=== PATIENT | male | born 1945 | race Caucasian/White ===

== ENCOUNTER → 2017-12-28 | Outpatient (CLI) | payer MEDICARE, OTHER ==
[~2017-12-28] MED LIST: ADDERALL 10 MG10 MG PO; ADDERALL 20 MG20 M1 PO; BACTRIM DS TAB1 EACH; CARAFATE 1 GM TA1 G1 PO; CENTRUM SILVER1 EAC4 PO; CYMBALTA30 MG PO; CYMBALTA60 MG PO; ENDOCET 10-3251 EACH PO; FINASTERIDE5 MG PO; IRON325 PO; KEFLEX500 MG PO; LEVOXYL150 MCG PO; LIPITOR40 MG PO; LISINOPRIL40 MG PO; MOBIC15 MG PO; MS CONTIN15 MG PO; NABUMETONE 500500 M1 PO; NEURONTIN 300300 M1 PO; NORCO 5-325 TA1 EAC1 PO; NORCO 5-325 TA1 EACH PO; OMEPRAZOLE 20 M20 MG PO; OXYCODONE-ACET1 EAC2; PERCOCET 5-3251 EACH PO; SENNA; VICODIN
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
== END ==
LOC: M.PC 01:31
DX: G89.4 Chronic pain syndrome (principal); M19.042 Primary osteoarthritis, left hand; M19.041 Primary osteoarthritis, right hand; M16.0 Bilateral primary osteoarthritis of hip; M19.012 Primary osteoarthritis, left shoulder; M19.011 Primary osteoarthritis, right shoulder; F90.8 Attention-deficit hyperactivity disorder, other type; Z79.899 Other long term (current) drug therapy

== ENCOUNTER → 2018-03-01 | Outpatient (CLI) | payer MEDICARE, OTHER ==
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
== END ==
LOC: M.PC 02-22 02:40
DX: M19.012 Primary osteoarthritis, left shoulder (principal); M19.011 Primary osteoarthritis, right shoulder; M17.0 Bilateral primary osteoarthritis of knee

== ENCOUNTER → 2018-05-03 | Outpatient (CLI) | payer MEDICARE, OTHER ==
--- NOTE | 2018-05-04 07:56 | PAINCON ---
[facility] [address] [place] [address] PAIN MANAGEMENT CONSULTATION Name: MITCH SAUNDERS [facility] [id number] Admission: 05/03/18 Attend Phys: Swathi Casey Discharge: Date of : 47 Report #: [id number] THIS REPORT FOR: //name// CC: Lalit Mcqueen DATE OF SERVICE: 05/03/2018 The patient is a 72-year-old gentleman being treated for chronic pain syndrome, osteoarthritis affecting shoulders and knees requiring complex medication management. Last seen in pain clinic 03/01/2018. Continued on a very low dose opiate analgesic, hydrocodone 5/325 b.i.d. He has done well with current medication. Does use Cymbalta, had been at 90. His psychiatrist increased to 120 daily that seems to be helpful. Using nabumetone 5 mg b.i.d. Returns to pain clinic today, rating pain at 5 on a VAS. Pain is in the low back, right knee, left shoulder. He tells me that he is scheduled for right knee surgery 05/15/2018. Does still have significant limited range of motion of the left shoulder, primarily the abduction actively though passively, he has fairly good range of motion generally full (s/p left rotator cuff surgery last summer with increased pain and decreased ROM, active, after a subsequent fall). PHYSICAL EXAMINATION: Otherwise shows 5-foot 10-inch, 178-pound gentleman, BMI is 25.7 kilograms per meter squared. Blood pressure is 151/91, repeat at 132/82; pulse 85, respirations 16. Alert and oriented to person, place and time, judged to be a reasonable historian. Rises from the chair using armrest, nominally antalgic gait, pain in the right knee. We reviewed the fact that opiate medications are being used to provide analgesia adequate to support activities of daily living, not attempting to achieve a specific pain score on the 0-10 Visual Analog Scale. The current opiate medications are providing sufficient analgesia to allow the patient to participate in activities of daily living. The patient is not exhibiting any aberrant behavior suggestive of drug diversion. The patient is not having any adverse reactions to medications. The patient is not suffering from daytime somnolence or mental acuity changes. The patient is managing opiate-induced constipation with appropriate tdho-nxg-yiawevx agents and dietary considerations. The patient was counseled on concern for caution with operating a motor vehicle while using opiate medications. A physical exam was performed and the patient's functional status was evaluated. All patients with back pain were advised against the bed rest greater than 4 days and were advised to return to normal activities. Pain score assessment was noted and the treatment plan was reviewed with the patient. All current medications, both prescribed and OTC were reviewed and reconciled on the electronic medical record. Tobacco screening was accomplished [place] [address] PAIN MANAGEMENT CONSULTATION Name: MITCH SAUNDERS [facility] [id number] Admission: 05/03/18 Attend Phys: Swathi Casey Discharge: Date of : 47 Report #: [id number] cessation was advised when indicated. BMI was noted and diet/exercise modification was recommended for all patients following outside normal parameters. I reviewed with the patient today their responsibilities to safeguard prescription medications, reviewed their responsibility to utilize medications only as prescribed by the physician. They are to seek and receive pain medications only from 1 physician group ( [facility]). They are to use 1 pharmacy and keep the clinic informed if they change pharmacies. Their responsibilities include making followup visits in a timely fashion and to avoid abrupt discontinuation of medication usage. Their responsibilities further include bringing their medications (bottles from the pharmacy with residual pills) to the visit for possible confirmation of pill counts and the patient understands it is their responsibility to submit to random drug screens to ensure both that the medications prescribed are present, and that no other controlled substances are present. All prescriptions provided today were generated electronically. ASSESSMENT: Osteoarthritis affecting knees, left shoulder rotator cuff tear requiring complex medication management. RECOMMENDATION: Continue hydrocodone 5/325 b.i.d. Recommend he follow up with Dr. Mcfarlane regarding possibly continuing his current medication. He has been very stable on the super low dose of narcotic. 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 Otherwise, he can follow up with the pain clinic, though it does seem somewhat superfluous to have to pay copays to both the hospital and the pain physician for this fairly low dose stable analgesic agent. Discharged in good and stable condition with 2 months of current medication. Follow up only if needed. <ELECTRONICALLY SIGNED> By: Joey Mcqueen DO 05/04/18 0756 1321 [id number] Mcqueen DO /nt
== END ==
LOC: M.PC 04-26 09:50
DX: M75.102 Unspecified rotator cuff tear or rupture of left shoulder, not specified as traumatic (principal); M17.0 Bilateral primary osteoarthritis of knee; Z79.899 Other long term (current) drug therapy

== ENCOUNTER 2018-06-10 21:42 | Emergency (ER) | payer MEDICARE, OTHER ==
[~2018-06-10] VITALS: Ht 172.7 cm; Wt 72.6 kg
[2018-06-10 22:23] LABS: ABSOLUTE EOSINOPHILS 0.1 thou/uL (0.0-0.7); ABSOLUTE LYMPHOCYTES 1.6 thou/uL (0.8-5.3); ABSOLUTE MONOCYTES 0.8 thou/uL (0.0-1.2); ABSOLUTE NEUTROPHILS 4.4 thou/uL (1.6-8.1); BASOPHILS 0.4 %; EOSINOPHILS 1.3 %; HEMATOCRIT 39.4 % (42.0-52.0); HEMOGLOBIN 12.7 gm/dL (14.0-18.0); LYMPHOCYTES 23.1 %; MCHC 32.3 g/dL (28.0-37.0); MONOCYTES 11.3 %; MPV 7.8 fl. (7.2-11.1); NUCLEATED RBCS 0 /100WBC; PLATELET COUNT* 274 thou/uL (150-400); POLYS 63.9 %; RBC 4.23 mil/uL (4.50-6.00); RDW-CV 15.3 % (10.5-14.5); WBC 6.8 thou/uL (4.0-11.0)
[2018-06-10 22:34] LABS: INR 1.1; PROTIME 10.5 Seconds (9.20-11.50)
[2018-06-10 23:29] VITALS: BP 115/58
== END 2018-06-10 23:30 | disposition home or self-care (01) ==
LOC: M.ERS 21:42
PROVIDERS: Nurse Practitioner Family
DX: S80.11XA Contusion of right lower leg, initial encounter (principal); I10 Essential (primary) hypertension; K21.9 Gastro-esophageal reflux disease without esophagitis; E89.0 Postprocedural hypothyroidism; Z96.653 Presence of artificial knee joint, bilateral; Z85.850 Personal history of malignant neoplasm of thyroid; W18.39XA Other fall on same level, initial encounter; Y93.89 Activity, other specified; Y92.89 Other specified places as the place of occurrence of the external cause; Y99.8 Other external cause status

== ENCOUNTER 2018-10-26 15:00 | Inpatient (IN) | payer MEDICARE, OTHER ==
[~2018-10-26] VITALS: Ht 177.8 cm; Wt 75.7 kg
[2018-10-26 15:06] VITALS: BP 152/99
[2018-10-26] MEDS ORDERED: CYMBALTA60 MG PO (15:12)
[2018-10-26 15:42] LABS: ABSOLUTE EOSINOPHILS 0.1 thou/uL (0.0-0.7); ABSOLUTE LYMPHOCYTES 1.5 thou/uL (0.8-5.3); ABSOLUTE MONOCYTES 0.9 thou/uL (0.0-1.2); ABSOLUTE NEUTROPHILS 9.6 thou/uL (1.6-8.1); BASOPHILS 0.4 %; EOSINOPHILS 0.9 %; HEMATOCRIT 38.3 % (42.0-52.0); HEMOGLOBIN 12.5 gm/dL (14.0-18.0); LYMPHOCYTES 12.4 %; MCH 30.4 pg (26.0-34.0); MCHC 32.6 g/dL (28.0-37.0); MCV 93.1 fL (80.0-100.0); MONOCYTES 7.6 %; NUCLEATED RBCS 0 /100WBC; PLATELET COUNT* 306 thou/uL (150-400); POLYS 78.7 %; RBC 4.12 mil/uL (4.50-6.00); WBC 12.2 thou/uL (4.0-11.0)
[2018-10-26 16:09] LABS: CREATININE 1.1 mg/dL (0.6-1.3); POTASSIUM 4.4 mmol/L (3.5-5.1)
[2018-10-26 16:13] LABS: ALBUMIN 3.2 g/dL (3.4-5.0); TOTAL BILIRUBIN 0.3 mg/dL (<0.1-1.0); TOTAL PROTEIN 6.8 g/dL (6.4-8.2)
[2018-10-26 16:58] LABS: ESR (SEDRATE) 18 mm/hr (0-20)
[2018-10-26 17:34] VITALS: BP 152/99
--- NOTE | 2018-10-26 19:53 | NUR ---
PATIENT ARRIVED TO UNIT AT 1745. ALERT AND ORIENTED X4. UP WITH STAND BY ASSIST IN ROOM. IV IS PATENT AND INFUSING. PAIN BEING MANAGED WITH PO AND IV PAIN MEDICATION. NAUSEA BEING MANAGED WITH IV NAUSEA MEDICATION. VSS ON ROOM AIR. PATIENT HAS BEEN ORIENTED TO ROOM. CALL LIGHT IS WITHIN REACH. NURSING WILL CONTINUE TO MONITOR.
[2018-10-26 20:00] VITALS: BP 148/87
--- NOTE | 2018-10-26 23:21 | NUR ---
Acewrap dressing to right elbow removed and photo taken. When photo was printed I observed that I placed L implementation project manager the arm in the photo. I did write RT on the photo with permanent marker since it is his right elbow that abrasion is and it does have redness around the scabbed area and some swelling. Area cleansed with wound cleansing solution, no drainage observed, Optifoam dressing applied and ABD, then acewrap dressing applied. Rt arm is elevated on pillow and dressing is dry and intact.
[2018-10-27 04:25] LABS: ABSOLUTE EOSINOPHILS 0.1 thou/uL (0.0-0.7); ABSOLUTE LYMPHOCYTES 1.7 thou/uL (0.8-5.3); ABSOLUTE NEUTROPHILS 8.9 thou/uL (1.6-8.1); BASOPHILS 0.4 %; EOSINOPHILS 1.1 %; HEMATOCRIT 37.8 % (42.0-52.0); HEMOGLOBIN 12.2 gm/dL (14.0-18.0); LYMPHOCYTES 14.3 %; MCH 30.2 pg (26.0-34.0); MCHC 32.4 g/dL (28.0-37.0); MCV 93.2 fL (80.0-100.0); MONOCYTES 8.8 %; MPV 8.3 fl. (7.2-11.1); NUCLEATED RBCS 0 /100WBC; PLATELET COUNT* 259 thou/uL (150-400); POLYS 75.4 %; RBC 4.05 mil/uL (4.50-6.00); RDW-CV 14.4 % (10.5-14.5); WBC 11.8 thou/uL (4.0-11.0)
[2018-10-27 04:31] LABS: CALCIUM 8.5 mg/dL (8.5-10.1); CREATININE 0.9 mg/dL (0.6-1.3); POTASSIUM 4.1 mmol/L (3.5-5.1)
--- NOTE | 2018-10-27 05:45 | NUR ---
Alert and oriented x 4. He has been in bed all of this shift. He is voiding per urinal. Vitals are stable. Rt arm acewrap dressing dry and intact and arm placed on pillow. He has had pain meds x 2 this shift. He's had nothing by mouth since midnight. He is sleeping well since last pain med given.
[2018-10-27 07:40] VITALS: BP 149/77
[2018-10-27 10:19] VITALS: BP 149/77
[2018-10-27] MEDS ORDERED: MINOCIN50 MG PO (10:41)
--- NOTE | 2018-10-27 10:49 | CON ---
[facility] [address] [place] [address] CONSULTATION Name: MITCH SAUNDERS Room: [address] IN .R.#: [id number] Admission: 10/26/18 Attend Phys: Lul Rey MD Discharge: Date of : 47 Report #: [id number] THIS REPORT FOR: //name// CC: Mei Rey DATE OF SERVICE: 10/27/2018 INFECTIOUS DISEASE CONSULTATION ATTENDING PHYSICIAN: Dr. Rey. REASON FOR EVALUATION: Right septic olecranon bursitis. HISTORY OF PRESENT ILLNESS: Chart reviewed, patient examined. This is a 73-year-old gentleman, with history of thyroid cancer in the distant past, who fell, struck his elbow roughly 3 days prior to his admission, felt it was getting worse including the pain, decreased range of motion, not clear that he had systemic illness. Evaluation raised question of possible septic olecranon bursitis. Plain film showed soft tissue swelling over the olecranon. No fracture or foreign body noted. Normal lactic acid. CRP was elevated at 62.4, sed rate 18, borderline elevated white count. He was started empirically on vancomycin. MRI is pending. Has been evaluated by Surgery who is taking a watchful waiting approach. At this point, he states he feels better with increased range of motion. Denies any significant pulmonary or gastrointestinal related complaints. Appetite has been fair. His weight has been stable. He is not encephalopathic. ALLERGIES: None known. MEDICATIONS: Include duloxetine, levothyroxine, vancomycin, p.r.n. analgesics and antiemetics. PAST MEDICAL HISTORY: In addition of thyroid cancers, previous thyroidectomy, is resolved, hypertension, chronic pain syndrome, reflux, esophageal dilatation on 2 occasions. PAST SURGICAL HISTORY: Bilateral knee and shoulder replacements. SOCIAL HISTORY: Nonsmoker, no ethanol, no illicit drug use. FAMILY HISTORY: Noncontributory. REVIEW OF SYSTEMS: Ten-point review of systems otherwise unremarkable [place] [address] CONSULTATION Name: MITCH SAUNDERS Room: [address] IN [facility].#: [id number] Admission: 10/26/18 Attend Phys: Lul Rey MD Discharge: Date of : 47 Report #: [id number] PHYSICAL EXAMINATION: GENERAL: Pleasant, alert, cooperative, in moderate distress, appears fairly well nourished. VITAL SIGNS: Temperature 98.9, pulse 100, respirations 20, blood pressure 148/87. SKIN: Warm, dry, no rashes. HEENT: Extraocular muscles intact. Oropharynx without lesion. NECK: Supple. LUNGS: Clear to auscultation. HEART: Regular rate and rhythm without murmur. ABDOMEN: Soft, nontender, nondistended. There are no peritoneal signs. EXTREMITIES: Right upper extremity has compression dressing. This was removed, exposed the olecranon, has a small area of eschar there. The overall degree of inflammation was only, I think mild to moderate. He did have somewhat decreased range of motion. I do not appreciate a significant excess fluid in the joint or in the olecranon. GENITOURINARY: Deferred. RECTAL: Deferred. LABORATORY DATA: Blood cultures sterile thus far. CBC: White count of 11.8, H and H 12.2 and 37.8 and platelets of 259. TSH of 0.547. Electrolytes: Sodium 139, potassium 4.1, chloride 104, bicarbonate is 27, BUN and creatinine 17 and 0.9, estimated GFR of 83, glucose of 105. Sed rate of 18. CRP of 62.4. Uric acid of 5.1. LFTs unremarkable. Albumin of 3.2, total protein 6.8. Plain film of the elbow showed soft tissue swelling over the olecranon. No fracture or foreign body or dislocation. ASSESSMENT: Right elbow inflammatory process. We will continue empiric antimicrobial therapy, the vancomycin is reasonable. He has clinically improved with that just due to the compression and gets in sense there is a significant infectious component to this. We will await MRI results. I think we can transition to oral antibiotics fairly short time. <ELECTRONICALLY SIGNED> By: Tim Soria MD 10/27/18 1049 0917 [id number] Soria MD /nt
[2018-10-27 11:49] VITALS: BP 145/88
[2018-10-27] MEDS ORDERED: NORCO 5-325 TA1 EACH PO (12:29)
[2018-10-27 12:42] VITALS: BP 149/77
[2018-10-27 13:27] VITALS: BP 149/77
--- NOTE | 2018-10-27 13:27 | NUR ---
PT GIVEN DISCHARGE INFORMATION AT THIS TIME, CARE NOTES AND PRESCRIPTIONS GIVEN. IV REMOVED. PT DENIED ANY FURTHER QUESTIONS OR CONCERNS AT THIS TIME. FALL RISK PRECAUTIONS IN PLACE. HOURLY ROUNDING COMPLETED. PT LEFT WITH SIGNIFICANT OTHER TO HOME CARE.
== END 2018-10-27 14:00 | disposition home or self-care (01) | DRG 872 ==
LOC: M.ERS 15:00 → M.ORTHSURG 16:52 → M.TBA-ER 16:52 → M.ORTHSURG 17:38
PROVIDERS: Nurse Practitioner Family; ADMIT Family Medicine
DX: A41.9 Sepsis, unspecified organism (principal); M71.121 Other infective bursitis, right elbow; E89.0 Postprocedural hypothyroidism; G89.29 Other chronic pain; M79.18 Myalgia, other site; K21.9 Gastro-esophageal reflux disease without esophagitis; Z96.653 Presence of artificial knee joint, bilateral; Z96.612 Presence of left artificial shoulder joint; Z96.611 Presence of right artificial shoulder joint; I12.9 Hypertensive chronic kidney disease with stage 1 through stage 4 chronic kidney disease, or unspecified chronic kidney disease; M54.9 Dorsalgia, unspecified; N18.3 Chronic kidney disease, stage 3 (moderate); Z85.850 Personal history of malignant neoplasm of thyroid; Z80.8 Family history of malignant neoplasm of other organs or systems

== ENCOUNTER 2019-10-09 12:30 | Emergency (ER) | payer OTHER ==
[~2019-10-09] VITALS: Ht 177.8 cm; Wt 72.6 kg
[~2019-10-09 12:30] MED LIST changes: +MINOCIN50 MG PO
[2019-10-09] MEDS ORDERED: ACETAMINOPHEN650 M5 PO (12:51)
[2019-10-09 13:20] LABS: ABSOLUTE EOSINOPHILS 0.1 thou/uL (0.0-0.7); ABSOLUTE LYMPHOCYTES 1.8 thou/uL (0.8-5.3); ABSOLUTE MONOCYTES 0.5 thou/uL (0.0-1.2); ABSOLUTE NEUTROPHILS 3.4 thou/uL (1.6-8.1); BASOPHILS 0.7 %; EOSINOPHILS 2.2 %; HEMATOCRIT 32.5 % (42.0-52.0); LYMPHOCYTES 31.3 %; MCH 30.6 pg (26.0-34.0); MCHC 33.9 g/dL (28.0-37.0); MCV 90.4 fL (80.0-100.0); MONOCYTES 7.9 %; MPV 7.6 fl. (7.2-11.1); NUCLEATED RBCS 0 /100WBC; PLATELET COUNT* 283 thou/uL (150-400); POLYS 57.9 %; WBC 5.9 thou/uL (4.0-11.0)
[2019-10-09 13:28] LABS: POTASSIUM 4.3 mmol/L (3.5-5.1)
[2019-10-09 13:33] LABS: ALBUMIN 3.3 g/dL (3.4-5.0); TOTAL BILIRUBIN 0.6 mg/dL (<0.1-1.0); TOTAL PROTEIN 6.4 g/dL (6.4-8.2)
[2019-10-09] MEDS ORDERED: MEDROLDOSEPACK PO (15:14)
[2019-10-09] MEDS ORDERED: LIDODERM1 EACH TRANSDERM (15:14)
[2019-10-09] MEDS ORDERED: NORCO 5-325 TA1 EAC1 PO (15:15)
[2019-10-09 15:19] VITALS: BP 127/79
== END 2019-10-09 15:20 | disposition home or self-care (01) ==
LOC: M.ERS 12:30
PROVIDERS: Physician Assistant
DX: S16.1XXA Strain of muscle, fascia and tendon at neck level, initial encounter (principal); M25.512 Pain in left shoulder; M54.5 Low back pain; R10.32 Left lower quadrant pain; R51 Headache; M25.552 Pain in left hip; I10 Essential (primary) hypertension; K21.9 Gastro-esophageal reflux disease without esophagitis; Z96.653 Presence of artificial knee joint, bilateral; Z85.850 Personal history of malignant neoplasm of thyroid; Z90.89 Acquired absence of other organs; W10.9XXA Fall (on) (from) unspecified stairs and steps, initial encounter; Y92.89 Other specified places as the place of occurrence of the external cause; Y93.89 Activity, other specified; Y99.8 Other external cause status

== ENCOUNTER 2019-11-11 14:59 | Inpatient (IN) | payer OTHER ==
[~2019-11-11] VITALS: Ht 177.8 cm; Wt 74.4 kg
--- NOTE | ~2019-11-11 | CON ---
[facility] [address] [place] [address] CONSULTATION Name: MITCH SAUNDERS Room: [address] IN .R.#: [id number] Admission: 11/11/19 Attend Phys: Anderw Hale Discharge: Date of : 47 Report #: [id number] THIS REPORT FOR: //name// CC: Edvin Raymond DATE OF SERVICE: 11/13/2019 HISTORY OF PRESENT ILLNESS: This is a 74-year-old male patient, who was evaluated by me for dizziness of 6 weeks' duration. He said he fell down, and he hit his head and since then he is having vertigo. He thinks it may be becoming better. History indicated that he has become worse, but to me he tells me that he may be somewhat better. When he came to Emergency Room, they did a CT scan of the head and CT scan of the cervical spine and that does not appear to be showing any acute changes. He said he had another episode of dizziness several years ago. It took some time. He was basically diagnosed with vertigo. Three years ago, he had an episode of passing out and he had an MRI at that time, which showed chronic changes, but no acute changes. REVIEW OF SYSTEMS: A 14-point review of system was carried out in this patient. He has some history of pneumonia, hypothyroidism, shoulder pain, some back pain, chronic musculoskeletal pain, thyroidectomy, knee replacement, hypertension. This was his relevant 14-point review of system. PAST MEDICAL HISTORY: Positive for similar symptoms in the past. FAMILY HISTORY: Unremarkable. SOCIAL HISTORY: He says he does not smoke or drink alcohol on a regular basis. PHYSICAL EXAMINATION: Indicates he is alert, responsive, oriented. His speech looks okay. 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 Rest of the cranial nerve examination is unremarkable. Neuromuscular examination was symmetrical. There is no cerebellar sign. I could not look at the fundus. He is a well-developed individual, who does not have any dysmorphic features of eyes, ears and face. His vision is impaired in the right eye. He has no thyroid mass. He has no carotid bruit. His pulses are palpable. He has no edema, cyanosis, or jaundice. Cardiac examinations appear unremarkable. No respiratory difficulty or rhonchi was noticed in this patient. He has no dysmorphic features of eyes, ears and face. Blood pressure is 138/78, temperature is 97.8, and respiration is 18. LABORATORY DATA: Indicate a white count of 8.5. Sodium is normal [place] [address] CONSULTATION Name: MITCH SAUNDERS Room: [address] IN [facility]#: [id number] Admission: 11/11/19 Attend Phys: Andrew Hale Discharge: Date of : 47 Report #: [id number] scan does not show any acute changes. IMPRESSION: This patient most likely has a post-traumatic labyrinthitis. It is going on for 6 weeks. I think it will be desirable to do an MRI in this patient to make sure there is no etiology. We will order that and we will look at it. If that is unremarkable, then I do not think neurological etiology is very likely in this patient. Thank you very much for this referral. By: [id number] Montano MD /abner
[~2019-11-11 14:59] MED LIST changes: +ACETAMINOPHEN650 M5 PO; +LIDODERM1 EACH TRANSDERM; +MEDROLDOSEPACK PO
[2019-11-11 15:03] VITALS: BP 116/62
[2019-11-11] MEDS ORDERED: VIAGRA100 MG PO (15:10)
[2019-11-11] MEDS ORDERED: LEVO-T25 MCG PO (15:11)
[2019-11-11] MEDS ORDERED: CYMBALTA60 MG PO (15:11)
[2019-11-11] MEDS ORDERED: NEXIUM 40 MG CA40 M1 PO (15:12)
[2019-11-11] MEDS ORDERED: HYDROXYZINE PAM25 M1 PO (15:12)
[2019-11-11] MEDS ORDERED: TRAZODONE 150150 M1 PO (15:13)
[2019-11-11] MEDS ORDERED: NEURONTIN 300M300 M2 PO (15:14)
[2019-11-11] MEDS ORDERED: NABUMETONE 500500 M1 PO (15:14)
[2019-11-11] MEDS ORDERED: LIPITOR80 MG PO (15:16)
[2019-11-11] MEDS ORDERED: IRON325 PO (15:16)
[2019-11-11] MEDS ORDERED: VITAMIN D3 COM1 EACH PO (15:16)
[2019-11-11] MEDS ORDERED: LISINOPRIL20 MG PO (15:17)
[2019-11-11 15:44] LABS: HEMATOCRIT 33.2 % (42.0-52.0); HEMOGLOBIN 10.8 gm/dL (14.0-18.0); MCH 30.2 pg (26.0-34.0); MCHC 32.6 g/dL (28.0-37.0); MCV 92.4 fL (80.0-100.0); MPV 7.8 fl. (7.2-11.1); NUCLEATED RBCS 0 /100WBC; PLATELET COUNT* 299 thou/uL (150-400); RDW-CV 16.2 % (10.5-14.5); WBC 12.2 thou/uL (4.0-11.0)
[2019-11-11 15:55] LABS: CALCIUM 9.1 mg/dL (8.5-10.1); CREATININE 1.4 mg/dL (0.6-1.3); POTASSIUM 4.1 mmol/L (3.5-5.1)
[2019-11-11 15:56] LABS: APTT 32.7 Seconds (25.0-31.3); PROTIME 10.3 Seconds (9.20-11.50)
[2019-11-11 16:07] LABS: ABSOLUTE MONOCYTES 0.2 thou/uL (0.0-1.2); PLATELET ESTIMATE ADEQUATE
[2019-11-11 16:08] LABS: ALBUMIN 2.4 g/dL (3.4-5.0); CK-MB MASS 2.3 ng/mL (<0.5-3.6); MAGNESIUM 1.8 mg/dL (1.8-2.4); TOTAL BILIRUBIN 0.6 mg/dL (<0.1-1.0); TOTAL PROTEIN 6.4 g/dL (6.4-8.2)
[2019-11-11 16:32] LABS: INFLUENZA A ANTIGEN Negative (Negative); INFLUENZA B ANTIGEN Negative (Negative)
[2019-11-11 16:43] VITALS: BP 116/62
--- NOTE | 2019-11-11 17:05 | NUR ---
ADMITTED TO RM 105 FROM ER PER CART. IV SITE NOTED WNL. PATIENT NOTED TALKATIVE. PRESENT AT BEDSIDE THRU ADMISSION. 02 2L/NC. POC AND ADMISSION INFORMATION REVIEWED. CALL LIGHT IN REACH. SEE MAR. ~DUGLASRN
[2019-11-11 18:00] VITALS: BP 108/91
[2019-11-11 20:10] VITALS: BP 110/59
[2019-11-12 05:08] LABS: HEMATOCRIT 31.7 % (42.0-52.0); HEMOGLOBIN 10.6 gm/dL (14.0-18.0); MCH 30.7 pg (26.0-34.0); MCHC 33.5 g/dL (28.0-37.0); MCV 91.5 fL (80.0-100.0); MPV 8.1 fl. (7.2-11.1); RBC 3.47 mil/uL (4.50-6.00); WBC 8.5 thou/uL (4.0-11.0)
[2019-11-12 05:26] LABS: ALKALINE PHOSPHATASE 76 U/L (46-116); ANION GAP 10 mmol/L (7-16); BUN 38 mg/dL (7-18); CALCIUM 8.7 mg/dL (8.5-10.1); CHLORIDE 104 mmol/L (98-107); CO2 23 mmol/L (21-32); CREATININE 1.2 mg/dL (0.6-1.3); GLUCOSE 153 mg/dL (70-99); MAGNESIUM 1.9 mg/dL (1.8-2.4); POTASSIUM 4.6 mmol/L (3.5-5.1); SGOT 14 U/L (15-37); SGPT 22 U/L (30-65); SODIUM 137 mmol/L (136-145); TOTAL BILIRUBIN 0.6 mg/dL (<0.1-1.0); TOTAL PROTEIN 5.9 g/dL (6.4-8.2); TROPONIN-I LEVEL <0.06 ng/mL (<0.06)
--- NOTE | 2019-11-12 06:48 | NUR ---
PATIENT HAS SLEPT WELL THROUGHOUT THE NIGHT. VSS ON 2L 02 VIA NASAL CANNULA. MEDICATIONS GIVEN ORDERED AND CHARTED. ASSESSMENT CHARTED. PATIENT UP WITH SBA. LUNGS DIMINISHED. IV IN LEFT AC-SL. PATIENT INSTRUCTED TO USE CALL LIGHT WHEN NEEDING ASSISTANCE. HOURLY ROUNDS MADE. WILL CONTINUE WITH PLAN OF CARE AND NURSING TO MONITOR.
--- NOTE | 2019-11-12 08:47 | EKG ---
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: CHRISTIAN : 1945 Requested By: Jhoan Mchugh Order Number: [id number] MD: Chito Hensley Measurements Intervals [place] Rate: 105 P: 51 UT: 145 QRS: 45 QRSD: 87 T: 56 QT: 342 QTc: 453 Interpretive Statements Sinus tachycardia Supraventricular bigeminy Probable left atrial enlargement Compared to ECG 10/25/2017 21:10:02 Sinus rhythm no longer present Electronically Signed On 11-12-2019 8:47:21 [employer] by Chito Hensley [email or web address] <ELECTRONICALLY SIGNED> By: Chito Hensley MD, [facility] 11/12/19 0847 [id number] [id number] Chito Hensley MD, [facility] /EPI
[2019-11-12 10:25] VITALS: BP 143/93
--- NOTE | 2019-11-12 13:02 | 2DMMODE ---
[place] [address] 2 D/M-MODE ECHOCARDIOGRAM Name: MITCH SAUNDERS Room: [address] IN [facility]#: [id number] Admission: 11/11/19 Attend Phys: Balta Raymond Discharge: Date of : 49 Date of Service: 11/12/19 1302 Report #: [id number] THIS REPORT FOR: //name// APPROVED REPORT Study performed: 11/12/2019 09:44:33 EXAM: Comprehensive 2D, Doppler, and color-flow Echocardiogram Patient Location: Bedside BSA: 1.85 HR: 90 bpm BP: 110/59 mmHg Other Information Study Quality: Good Indications Dyspnea 2D Dimensions IVSd: 16.03 (7-11mm) LVOT Diam: 21.69 (18-24mm) LVDd: 39.67 mm PWd: 11.02 (7-11mm) Ascending Ao: 31.97 (22-36mm) LVDs: 30.69 (25-40mm) Aortic Root: 28.33 mm Volumes Left Atrial Volume (Systole) LA ESV Index: 21.30 mL/m2 Aortic Valve AoV Peak Ajay.: 1.45 m/s AO Peak Gr.: 8.41 mmHg LVOT Max P.16 mmHg AO Mean Gr.: 5.22 mmHg LVOT Mean P.08 mmHg LVOT Max V: 1.02 m/s AO V2 VTI: 25.36 cm LVOT Mean V: 0.67 m/s SUDHAKAR (VTI): 2.55 cm2 LVOT V1 VTI: 17.52 cm Mitral Valve E/A Ratio: 0.83 MV Decel. Time: 192.69 ms MV E Max Ajay.: 0.65 m/s MV PHT: 55.88 ms MVA (PHT): 3.94 cm2 [place] [address] 2 D/M-MODE ECHOCARDIOGRAM Name: MITCH SAUNDERS Room: [address] IN [facility]#: [id number] Admission: 11/11/19 Attend Phys: Balta Raymond Discharge: Date of : 49 Date of Service: 11/12/19 1302 Report #: [id number] TDI E/Lateral E': 4.64 E/Medial E': 5.00 Medial E' Ajay.: 0.13 m/s Lateral E' Ajay.: 0.14 m/s Pulmonary Valve PV Peak Ajay.: 1.17 m/s PV Peak Gr.: 5.44 mmHg Left Ventricle The left ventricle is normal size. There is normal LV segmental wall motion. There is normal left ventricular wall thickness. Left ventricular systolic function is normal. LVEF is 50-55%. Grade I - abnormal relaxation pattern. Right Ventricle The right ventricle is normal size. The right ventricular systolic function is normal. Atria The left atrium size is normal. The right atrium size is normal. Aortic Valve The aortic valve is normal in structure. No aortic regurgitation is present. There is no aortic valvular stenosis. Mitral Valve The mitral valve is normal in structure. Trace mitral regurgitation. No evidence of mitral valve stenosis. Tricuspid Valve The tricuspid valve is normal in structure. There is no tricuspid valve regurgitation noted. Pulmonic Valve The pulmonary valve is normal in structure. There is no pulmonic valvular regurgitation. Great Vessels The aortic root is normal in size. IVC is normal in size and collapses >50% with inspiration. Pericardium There is no peric[place] [address] 2 D/M-MODE ECHOCARDIOGRAM Name: MITCH SAUNDERS Room: [address]#: [id number] Admission: 11/11/19 Attend Phys: Balta Raymond Discharge: Date of : 49 Date of Service: 11/12/19 1302 Report #: [id number] <Conclusion> The left ventricle is normal size. There is normal left ventricular wall thickness. Left ventricular systolic function is normal. LVEF is 50-55%. Grade I - abnormal relaxation pattern. Trace mitral regurgitation. IVC is normal in size and collapses >50% with inspiration. <ELECTRONICALLY SIGNED> By: Jairo Barahona MD, FACC 11/12/19 1302 1302 130 Jairo Barahona MD, FACC /INF
[2019-11-12 16:05] LABS: URINE BILIRUBIN NEGATIVE (Negative); URINE BLOOD 1+ (Negative); URINE CLARITY CLEAR; URINE COLOR YELLOW; URINE GLUCOSE-RANDOM NEGATIVE (Negative); URINE KETONES NEGATIVE (Negative); URINE LEUKOCYTES NEGATIVE (Negative); URINE NITRITE NEGATIVE (Negative); URINE PROTEIN 2+ (Negative); URINE SPECIFIC GRAVITY 1.025 (1.005-1.030); URINE UROBILINOGEN 0.2 E.U./dl (0.2-1.0)
[2019-11-12 16:18] LABS: HYALINE CASTS 4-10 Moderate /LPF (None Seen); SQUAMOUS 4-10 Moderate /LPF (0-3)
[2019-11-12 16:19] LABS: URINE RBC 0-2 Rare /HPF (0-2); URINE WBC 0-5 Rare /HPF (0-5)
[2019-11-12 16:20] LABS: BACTERIA 1-9 Few /HPF (None Seen)
[2019-11-12 16:21] LABS: CRYSTALS None Seen /LPF (None Seen); MUCUS 0-3 Light strn/LPF (None Seen)
--- NOTE | 2019-11-12 17:39 | NUR ---
PT LIVES AT HOME W/ AND CHILD. PT HAS SEVERAL SUPPORTIVE CHILDREN, BIO AND ADOPTIVE. PT IS STILL EMPLOYEED IN THE [employer]. PT IS ACTIVE AND DRIVES. PT HAS NO DMES. PT HAS NO HX W/SNF AND DOESNT REMEMBER WHAT HH [facility] HE USED IN THE PAST. PT IS INDEPENDENT W/ADLS. NO ANTICIPATED NEEDS.
--- NOTE | 2019-11-12 19:00 | NUR ---
PATIENT PLEASANT AND COOPERATIVE W/ ASSESS AND CARES THIS SHIFT. SEE NOTES, SEE MAR. HRLY ROUNDS DONE. ~TJRN
[2019-11-12 22:00] VITALS: BP 139/70
--- NOTE | 2019-11-13 05:52 | NUR ---
PATIENT HAS SLEPT WELL THROUGHOUT MOST OF THE NIGHT, BUT RESTLESS AT TIMES. VSS ON 2L 02 VIA NASAL CANNULA ALTHOUGH PULSE IS TACHY. PATIENT IS FORGETFUL AND CONFUSED AT TIMES. IV IN RIGHT FOREARM-SL. FALL PRECAUTIONS IN PLACE AND HOURLY ROUNDS MADE. WILL CONTINUE WITH PLAN OF CARE AND NURSING TO MONITOR.
[2019-11-13 07:25] VITALS: BP 138/78
[2019-11-13 12:03] LABS: CALCIUM 9.2 mg/dL (8.5-10.1); CREATININE 1.2 mg/dL (0.6-1.3); POTASSIUM 3.9 mmol/L (3.5-5.1)
--- NOTE | 2019-11-13 16:54 | NUR ---
PT REMAINED ALERT AND FORGETFUL. VERTIGO MEDS GIVEN ORDERED. FALL RISK PRECAUTIONS IN PLACE. HOURLY ROUNDING COMPLETED. WILL CONTINUE TO MONITOR.
[2019-11-13 20:00] VITALS: BP 144/79
--- NOTE | 2019-11-14 04:04 | NUR ---
ASSUMED PT CARE AT APPROX 1930. PT IS AWAKE AND ORIENTED TO SELF,PLACE AND TIME. PT HAS PERIODS OF FORGETFULNESS AND CONFUSION. VSS ON 2L OF O2/NC. NO DESATURATIONS NOTED. ASSESSMENT DONE AND CHARTED. CALL LIGHT WITHIN REACH. HIGH FALL PRECAUTIONS IN PLACE. HOURLY ROUNDING DONE FOR PT SAFETY.
[2019-11-14 08:00] VITALS: BP 120/71
[2019-11-14] MEDS ORDERED: LEVAQUIN 500 M500 M3 PO (15:50)
[2019-11-14] MEDS ORDERED: PROAIR HFA8.5 GM INH (15:50)
[2019-11-14 16:35] VITALS: BP 137/67
--- NOTE | 2019-11-14 16:55 | NUR ---
ASSUMED CARE AT 0730. ALERT TO SELF AND SITUATION BUT HAS CONFUSED CONVERSATION AT TIMES. WEARING O2 AT 1-2 LITERS PER N/C. HX OF WEAKNESS DIZZINESS FALLS AT HOME. ALTERED MENTAL STATUS AT HOME. RESTING IN BED DENIES PAIN OR CONCERNS. RECEIVING R.T. TXS. SCHEDULED. VOIDS PER URINAL.
--- NOTE | 2019-11-14 17:57 | NUR ---
PT. WAS TO BE DISCHARGED TODAY BUT MRI WASNT DONE, HOSPITAL CLERK AND TEST WASNT ORDERED STAT DR. MACKENZIE WAS NOTIFIED AND REP FROM [facility] CALLED SAID TO DO IT IN A.M. NO DISCHARGE TODAY AWARE.
[2019-11-14 20:40] VITALS: BP 151/88
--- NOTE | 2019-11-15 05:46 | NUR ---
ASSUMED PATIENT CARE AT APPROXIMATELY 2330. REPORT GIVEN FROM NIGHT NURSE LESLIE. VSS ON RA. ASSESSMENT CHARTED. NO C/O PAIN. IV IN RIGHT FOREARM-SL. PATIENT INSTRUCTED TO USE CALL LIGHT WHEN NEEDING ASSISTANCE. HOURLY ROUNDS MADE. WILL CONTINUE WITH PLAN OF CARE AND NURSING TO MONITOR.
[2019-11-15 07:40] VITALS: BP 143/85
[2019-11-15 11:40] VITALS: BP 143/85
[2019-11-15] MEDS ORDERED: ASA81BEC PO (12:33)
--- NOTE | 2019-11-15 13:52 | NUR ---
ASSUMED CARE OF PATIENT AT APPROX 0730. ALERT AND ORIENTED X4. ASSESSMENT COMPLETED AND CHARTED. VSS ON ROOM AIR. NO COMPLAINTS TO THIS NURSE. PATIENT MEDICALLY STABLE AND DISCHARGED AT 1345 WITH ALL PERSONAL BELONGINGS AND DISCHARGE INSTRUCTIONS.
== END 2019-11-15 13:45 | disposition home or self-care (01) | DRG 177 ==
LOC: M.ERS 14:59 → M.TBA-ER 16:11 → M.ORTHSURG 16:11
PROVIDERS: Family Medicine; ADMIT Internal Medicine
DX: J15.6 Pneumonia due to other Gram-negative bacteria (principal); R65.11 Systemic inflammatory response syndrome (SIRS) of non-infectious origin with acute organ dysfunction; J96.00 Acute respiratory failure, unspecified whether with hypoxia or hypercapnia; N17.9 Acute kidney failure, unspecified; E44.0 Moderate protein-calorie malnutrition; I10 Essential (primary) hypertension; G89.29 Other chronic pain; M79.18 Myalgia, other site; K21.9 Gastro-esophageal reflux disease without esophagitis; Z96.653 Presence of artificial knee joint, bilateral; Z96.612 Presence of left artificial shoulder joint; Z96.611 Presence of right artificial shoulder joint; H81.10 Benign paroxysmal vertigo, unspecified ear; E03.9 Hypothyroidism, unspecified; D64.9 Anemia, unspecified; Z85.850 Personal history of malignant neoplasm of thyroid; Z68.23 Body mass index [BMI] 23.0-23.9, adult; Z79.899 Other long term (current) drug therapy